=== PATIENT | female | born 1940 | race Caucasian/White ===

== ENCOUNTER 2018-03-10 13:40 | Outpatient (CLI) | payer MEDICARE | END 2018-03-10 13:41 | disposition home or self-care (01) | LOC: BICULT 13:40 | PROVIDERS: ATTEND Family Medicine | DX: M79.89 Other specified soft tissue disorders (principal); R22.31 Localized swelling, mass and lump, right upper limb | CPT/HCPCS: 76999 ==

== ENCOUNTER 2018-04-09 09:08 | Outpatient (CLI) | payer MEDICARE | END 2018-04-09 09:09 | disposition home or self-care (01) | LOC: DTY/OP 09:08 | PROVIDERS: ATTEND Family Medicine | DX: R63.6 Underweight (principal) | CPT/HCPCS: 97802 ==

== ENCOUNTER 2018-06-12 14:42 | Outpatient (CLI) | payer MEDICARE | END 2018-06-12 14:43 | disposition home or self-care (01) | LOC: BICMAMMO 14:42 | PROVIDERS: ATTEND Family Medicine | DX: Z12.31 Encounter for screening mammogram for malignant neoplasm of breast (principal); Z85.3 Personal history of malignant neoplasm of breast | CPT/HCPCS: 77063; 77067 ==